=== PATIENT | male | born 1980 | race Caucasian/White ===

== ENCOUNTER 2017-03-06 10:34 | Day surgery (SDC) | payer OTHER ==
[~2017-03-06 10:34] MED LIST: ceFAZolin 2 GM/50 ML 2 GM/50 ML BAG IV ONE
[2017-03-06] MEDS ORDERED: LACTATED RINGERS 1,000 ML IV ONE (10:38)
[2017-03-06] MEDS ORDERED: fentaNYL 100 MCG/2 ML VIAL IVP ONE (14:00)
[2017-03-06] MEDS ORDERED: MIDAZOLAM 2 MG/2 ML VIAL IVP ONE (14:00)
[2017-03-06] MEDS ORDERED: LIDOCAINE-MPF 0.5% 50 ML VIAL IM ONE (14:00)
[2017-03-06] MEDS ORDERED: BUPIVACAINE 0.5% PF 30 ML VIAL SUBQ ONE (14:45)
[2017-03-06 15:38] VITALS: BP 120/56
--- NOTE | 2017-03-07 09:08 | OPERATIVE REPORT ---
DATE OF SURGERY: 03/06/2017 SURGEON: Tian Weber MD PREOPERATIVE DIAGNOSIS: Left volar wrist mass. POSTOPERATIVE DIAGNOSIS: Left volar wrist ganglion. PROCEDURE PERFORMED: Left wrist mass excision, CPT 44629. POSTOPERATIVE PLAN: Leave dressing on until 2 week visit. Sutures out at 2 weeks. No weightbearing activities until 6 weeks. INDICATION FOR SURGERY: A 37-year-old male with a painful volar wrist mass, been present for a long period of time. Risks, benefits, and alternatives were discussed. Risks include pain, bleeding, infection, damage to nearby structures to include the radial artery and need for further procedures, a recurrence rate of 10% to 20% was quoted to the patient. Given these risks, he still wanted to move forward and signed a consent form. An Mert test preoperatively showed ulnar dominant circulation into the hand. An ultrasound confirmed fluid-filled mass, consistent with a ganglion cyst. SURGICAL FINDINGS: A 1 cm x 1 cm x 1 cm ganglion cyst with 1 additional loculation distally that was smaller in size. Both were excised in whole. It was arising from the FDR flexor tendon sheath. IMPLANTS: None. ANESTHESIA: Timberlake block. ANTIBIOTICS: Weight-based Ancef. ESTIMATED BLOOD LOSS: 5 mL. URINE OUTPUT: Not recorded. IV FLUIDS: 1000 mL. TOURNIQUET TIME AND PRESSURE: Twenty-five minutes at 250 mmHg. TOUR TIME AT EXCISION: Ten minutes. SPECIMENS: Left wrist mass. COMPLICATIONS: None. DISPOSITION: Stable to PACU. DVT PROPHYLAXIS: SCDs while in the hospital, early frequent ambulation afterwards. PROCEDURE IN DETAIL: The patient was met in the preoperative hold area the day of the procedure, operative extremity was signed. Consent was verified and he desired to proceed. He was brought to the operating room and given the anesthesia. They started a Alphonso block and provided some sedation. He was prepped and draped in the standard sterile fashion. Surgical time-out was held where we confirmed the patient, procedure, identity, allergies, antibiotics, images, all were in agreement and we proceeded. The time of the tourniquet at incision was 10 minutes. I made a 2 cm longitudinal incision overlying the wrist mass. The wrist was extended to accentuate this. Sharp dissection with a knife was brought down to the mass. Tenotomies were used after that to free all adjacent tissue. The radial artery was deep and radial to the mass. FCR tendon was visualized and the stalk of the ganglion headed back towards the tendon sheath proximally. The ganglion was then popped with an Allis clamp to help with mobilization and the tenotomy scissors helped me dissect all the surrounding tissue. Once free from all tissue the stalk was excised off the tendon sheath and the mass was brought out of the wound. Bipolar electrocautery was used to maintain hemostasis. It was passed off and was then inspected to ensure that it was completely excised until remaining tissue was present. A wet Zane-Nohemi was placed in the wound and the tourniquet was dropped. After holding pressure for 3 minutes the Zane-Nohemi was removed and there was found to be no significant bleeding. Radial pulse had returned. The wound was closed with 4-0 nylon in a horizontal mattress. Xeroform was applied and a sterile dressing was placed. The patient had already awakened at the end of the procedure, was transferred to the recovery room. DIAZ
== END 2017-03-06 10:35 | disposition home or self-care (01) ==
LOC: SDS 10:34
PROVIDERS: ATTEND Orthopaedic Surgery
PROC: 0LB Tendons, Excision (ICD-10-PCS; principal; 2017-03-06 12:30)
DX: M67.432 Ganglion, left wrist (principal); Z72.0 Tobacco use
CPT/HCPCS: 25111; J0690; J3490; J7120